=== PATIENT | female | born 1995 | race Caucasian/White ===

== ENCOUNTER 2016-12-23 15:05 | Emergency (ER) | payer OTHER ==
[~2016-12-23] VITALS: Ht 160 cm; Wt 70.3 kg
[~2016-12-23 15:05] MED LIST: PREN1CAP7 PO; PRENTAB PO; RANI150T PO; ZANT150T2 PO
--- NOTE | 2016-12-23 16:00 | PD ---
HPI Chief Complaint Contractions Date Seen: Dec 23, 2016 Time Seen: 15:42 Travel History International Travel<30 Days: No Contact w/Intl Traveler<30Days: No Known Affected Area: No History of Present Illness HPI 21-year-old 1 para 0 at 38+ weeks who has been having contractions for the last hour. She denies any bleeding or leakage of fluid. She reports good movement History Past Medical History Narrative Medical GERD Past Surgical History Surgical History: No Previous Surgery Family History Family History: Negative Social History Alcohol Use: No Tobacco Use: No Substance Abuse: No Allergies-Medications (Allergen,Severity, Reaction): Coded Allergies: No Known Allergies (Unverified , 12/20/16) Home Meds Active Scripts Ranitidine (Zantac) 150 Mg Tab, 150 MG PO BID for Reduce Stomach Acid, #60 TAB 0 Refills Prov:Julieta Abreu 11/08/16 Vit W/ Iron Carbonyl- (Prenatabs Rx 29-1 mg) 1 Tab Tab, 1 TAB PO DAILY , #30 BOTTLE 11 Refills Prov:Julieta Abreu 11/06/16 Discontinued Scripts Ranitidine (Ranitidine) 150 Mg Tab, 150 MG PO BID for Heartburn Management, #60 TAB 6 Refills Prov:Julieta Abreu 11/08/16 W/O Vit A W/ Fe Fumar (Citranatal [place]) 27-1-260 Mg Cap, 1 CAP PO DAILY for Nutritional Supplement, #60 CAP 3 Refills Prov:Patrica Garcia CNM [facility] 06/26/16 Review of Systems Except as stated in HPI: all other systems reviewed are Neg Physical Exam Narrative GENERAL: Well-nourished, well-developed patient. SKIN: Warm and dry. HEAD: Normocephalic and atraumatic. EYES: No scleral icterus. No injection or drainage. ENT: No nasal drainage noted. Mucous membranes pink. Airway patent. NECK: Supple, trachea midline. No JVD. CARDIOVASCULAR: Regular rate and rhythm without murmurs, gallops, or rubs. RESPIRATORY: Breath sounds equal bilaterally. No accessory muscle use. ABDOMEN/GI: Abdomen soft, non-tender, bowel sounds present, no rebound, no guarding Gravid to [-] weeks size Fundal Height: [-] GENITOURINARY: External Genitalia: intact and normal in appearance BUS glands: [-] Cervix: [-] Dilatation: [Closed-] Effacement: [-60] Station: [-3-] Presentation: [-] Membranes: [intact ] Uterine Contractions: [Mild irregular-] FHT's: Category: [-1] Baseline: [-] Reactive: [Yes-] Variability: [-] Decels: [-] EXTREMITIES: No cyanosis or edema. BACK: Nontender without obvious deformity. No CVA tenderness. NEUROLOGICAL: Awake and alert. Motor and sensory grossly within normal limits. Five out of 5 muscle strength in all muscle groups. Normal speech. Data Data Vital Signs Reviewed: Yes Group B Strep: Negative MDM Medical Record Reviewed: Yes Narrative Course / MDM Assessment: Primigravida with mild uterine contractions without labor. Plan: Labor precautions were reviewed. She will return to ED or follow-up for routine care visit Sunday. Diagnosis Diagnosis: Primary Impression: 38 weeks gestation of Additional Impression: Irregular uterine contractions Disposition: DISCHARGE HOME Flex Murillo MD Dec 23, 2016 16:00
== END 2016-12-23 16:08 | disposition home or self-care (01) ==
LOC: HOBED 15:05
DX: O47.1 False labor at or after 37 completed weeks of gestation (principal); K21.9 Gastro-esophageal reflux disease without esophagitis; Z3A.38 38 weeks gestation of pregnancy
CPT/HCPCS: 99283

== ENCOUNTER 2017-01-06 19:42 | Inpatient (IN) | payer OTHER ==
[~2017-01-06] VITALS: Ht 160 cm; Wt 70.8 kg
[~2017-01-06 19:42] MED LIST changes: -PREN1CAP7 PO; -RANI150T PO
--- NOTE | 2017-01-06 19:58 | HHI.HP ---
HPI Chief Complaint 40 weeks and 6 days . Elective admission for IOL. Travel History International Travel<30 Days: No Contact w/Intl Traveler<30Days: No Known Affected Area: No History of Present Illness HPI Pt is a 21 yo G p at 40 weeks and 6 days. presents for IOL post-term. care at [facility], [facility] 12-31-2016. Reports active movements. No vaginal bleeding or leaking. GBS negative. Weeks Gestation: 41 Para: 0 : 1 History Past Medical History Narrative Medical GERD Obstetric History Obstetric History PRIMIGRAVIDA Past Surgical History Surgical History: No Previous Surgery Family History Family History: Negative Social History Alcohol Use: No Tobacco Use: No Substance Abuse: No Allergies-Medications (Allergen,Severity, Reaction): Coded Allergies: No Known Allergies (Unverified , 01/02/17) Home Meds Active Scripts Ranitidine (Zantac) 150 Mg Tab, 150 MG PO BID for Reduce Stomach Acid, #60 TAB 0 Refills Prov:Julieta Abreu 11/08/16 Vit W/ Iron Carbonyl- (Prenatabs Rx 29-1 mg) 1 Tab Tab, 1 TAB PO DAILY , #30 BOTTLE 11 Refills Prov:Julieta Abreu 11/06/16 Review of Systems Except as stated in HPI: all other systems reviewed are Neg Physical Exam Narrative GENERAL: Well-nourished, well-developed patient. SKIN: Warm and dry. HEAD: Normocephalic and atraumatic. EYES: No scleral icterus. No injection or drainage. ENT: No nasal drainage noted. Mucous membranes pink. Airway patent. NECK: Supple, trachea midline. No JVD. CARDIOVASCULAR: Regular rate and rhythm without murmurs, gallops, or rubs. RESPIRATORY: Breath sounds equal bilaterally. No accessory muscle use. BREASTS: Bilateral exam showed no masses , no retractions, no nipple discharge. ABDOMEN/GI: Abdomen soft, non-tender, bowel sounds present, no rebound, no guarding Gravid to [40] weeks size GENITOURINARY: External Genitalia: intact and normal in appearance Cervix: [soft] Dilatation: [FT] Effacement: [50%] Station: [-3] Presentation: [-] Membranes: [intact] Uterine Contractions: [rare] FHT's: Category: [] Baseline: [-] Reactive: [-] Variability: [-] Decels: [none] EXTREMITIES: No cyanosis or edema. BACK: Nontender without obvious deformity. No CVA tenderness. NEUROLOGICAL: Awake and alert. Motor and sensory grossly within normal limits. Five out of 5 muscle strength in all muscle groups. Normal speech. Caprini VTE Risk Assessment Caprini VTE Risk Assessment: No/Low Risk (score <= 1) Caprini Risk Assessment Model Point Value = 1 Point Value = 2 Point Value = 3 Point Value = 5 Age 41-60 Minor surgery BMI > 25 kg/m2 Swollen legs Varicose veins or History of unexplained or recurrent spontaneous Oral contraceptives or hormone replacement Sepsis (< 1 month) Serious lung disease, including pneumonia (< 1 month) Abnormal pulmonary function Acute myocardial infarction Congestive heart failure (< 1 month) History of inflammatory bowel disease Medical patient at bed rest Age 61-74 Arthroscopic surgery Major open surgery (> 45 min) Laparoscopic surgery (> 45 min) Malignancy Confined to bed (> 72 hours) Immobilizing plaster cast Central venous access Age >= 75 History of VTE Family history of VTE Factor V Leiden Prothrombin [id number] Lupus anticoagulant Anticardiolipin antibodies Elevated serum homocysteine Heparin-induced thrombocytopenia Other congenital or acquired thrombophilia Stroke (< 1 month) Elective arthroplasty Hip, pelvis, or leg fracture Acute spinal cord injury (< 1 month) Prophylaxis Regimen Total Risk Factor Score Risk Level Prophylaxis Regimen 0-1 Low Early ambulation 2 Moderate Order ONE of the following: *Sequential Compression Device (SCD) *Heparin 5000 units SQ BID 3-4 Higher Order ONE of the following medications: *Heparin 5000 units SQ TID *Enoxaparin/Lovenox 40 mg SQ daily (WT < 150 kg, CrCl > 30 mL/min) *Enoxaparin/Lovenox 30 mg SQ daily (WT < 150 kg, CrCl > 10-29 mL/min) *Enoxaparin/Lovenox 30 mg SQ BID (WT < 150 kg, CrCl > 30 mL/min) AND/OR *Sequential Compression Device (SCD) 5 or more Highest Order ONE of the following medications: *Heparin 5000 units SQ TID (Preferred with Epidurals) *Enoxaparin/Lovenox 40 mg SQ daily (WT < 150 kg, CrCl > 30 mL/min) *Enoxaparin/Lovenox 30 mg SQ daily (WT < 150 kg, CrCl > 10-29 mL/min) *Enoxaparin/Lovenox 30 mg SQ BID (WT < 150 kg, CrCl > 30 mL/min) AND *Sequential Compression Device (SCD) Data Data Vital Signs Reviewed: Yes Group B Strep: Negative Assessment/Plan Assessment and Plan 21 yo at 40 weeks and 6 days. Admission for post-term IOL. Plan for Cervidil 10mg posterior fornix, Blane Conde MD Jan 06, 2017 19:58
[2017-01-06] MEDS: LACTATED RINGER'S 1000 ML INJ 1,000 ML IV SCH (21:24)
[2017-01-06] MEDS ORDERED: LACTATED RINGER'S 1000 ML INJ 1,000 ML IV PRN (21:24)
[2017-01-06] MEDS ORDERED: CITRIC ACID-SODIUM CITRATE LIQ 30 ML UDC PO SCH (21:30)
[2017-01-06] MEDS ORDERED: LIDOCAINE HCL 1% 50 ML VIAL I-DERMAL PRN (21:30)
[2017-01-06] MEDS ORDERED: MINERAL OIL 10 ML VIAL TOPICAL PRN (21:30)
[2017-01-06] MEDS ORDERED: LIDOCAINE HCL 1% 50 ML VIAL INFIL PRN (21:30)
[2017-01-06] MEDS ORDERED: ONDANSETRON HCL 4 MG/2 ML VIAL IV PUSH PRN (21:30)
[2017-01-06] MEDS ORDERED: OXYTOCIN 30 UNITS-500ML PREMIX 500 ML IV ONE (21:30)
[2017-01-06] MEDS ORDERED: SODIUM CHLORID 0.9% 500 ML INJ 500 ML IV PRN (21:30)
[2017-01-06] MEDS ORDERED: SODIUM CHLOR 0.9% 1000 ML INJ 1,000 ML IV PRN (21:44)
[2017-01-06 22:00] VITALS: BP 125/82; PULSE 78; RESP 18
[2017-01-06] MEDS: DINOPROSTONE 10 MG VAG INSERT VAGINAL ONE (22:00)
[2017-01-06 22:15] LABS: AUTOMATED NEUTROPHIL # 7.8 TH/MM3 (1.8-7.7); BASOPHIL # 0.1 TH/MM3 (0-0.2); BASOPHIL % 0.6 % (0.0-2.0); EOSINOPHIL # 0.1 TH/MM3 (0-0.4); EOSINOPHIL % 0.9 % (0.0-4.0); HEMO FLAGS DIFF FINAL; LYMPH % 21.9 % (9.0-44.0); LYMPHOCYTE # 2.4 TH/MM3 (1.0-4.8); MEAN CELL VOLUME 86.6 FL (80.0-100.0); MEAN CORPUSCULAR HEMOGLOBIN 29.1 PG (27.0-34.0); MEAN CORPUSCULAR HGB CONC 33.6 % (32.0-36.0); MONO % 6.6 % (0.0-8.0); PLATELET COUNT 180 TH/MM3 (150-450); RED BLOOD COUNT 4.27 MIL/MM3 (4.00-5.30); RED CELL DISTRIBUTION WIDTH 13.9 % (11.6-17.2); WHITE BLOOD COUNT 11.1 TH/MM3 (4.0-11.0)
[2017-01-06 22:19] LABS: BACTERIA, URINE RARE /hpf; BLOOD, URINE NEG (NEG); COMMENT (UR) CULT NOT INDICATED; CULTURE IF INDICATED CULT NOT INDICATED; GLUCOSE,URINE 70 mg/dL (NEG); KETONE, URINE NEG (NEG); MUCUS URINE FEW /lpf (OCC); NITRITE,URINE NEG (NEG); PH, URINE 6.5 (5.0-8.5); SQUAMOUS EPITHELIAL CELL URINE 1 /hpf (0-5); URINE COLOR YELLOW (YELLW/STRAW)
[2017-01-06] MEDS: DINOPROSTONE 10 MG VAG INSERT VAGINAL SCH ×2 (23:13→23:17)
[2017-01-07] VITALS (15 sets, daily range): BP systolic 93–117; BP diastolic 56–79; PULSE 18–92; RESP 7–18; TEMP 98.1–99
[2017-01-07] MEDS: LACTATED RINGER'S 1000 ML INJ 1,000 ML IV SCH ×3 (05:24→21:24)
--- NOTE | 2017-01-07 08:04 | PD.LABORPN ---
Subjective Subjective Patient seen and examined this morning by OB team. Her only complaint this morning is heartburn related to acid reflux. Patient endorses good movement with no loss of fluid, bleeding, or discharge overnight. Denies any fevers, chills, SOB, chest pain, or calf tenderness. Objective Vital Signs Vital Signs Date Time Temp Pulse Resp B/P (MAP) Pulse Ox O2 Delivery O2 Flow Rate FiO2 01/07/17 07:21 78 18 108/67 (81) 01/07/17 04:58 17 01/07/17 04:57 87 93/56 (68) 01/07/17 04:56 98.1 01/07/17 03:00 71 18 01/07/17 02:00 18 01/07/17 00:00 60 7 110/58 (75) Objective Pelvic Exam: on 02/06/17 at 2000 Cervix: Posterior Dilatation: 0-1cm Effacement: Soft Station: Soft Presentation: Vertex Membranes: Intact Uterine Contractions: None FHT's: Category: 1 Baseline: 120s Reactive: Positive Variability: Moderate Decels: None Weeks Gestation: 41 Gest Age Assessed Date: Jan 06, 2017 Gest Age Assessed Time: 20:00 Pt started active labor?: No Medical induction of labor?: Yes Medical induction start date: Jan 06, 2017 Medical induction start time: 23:00 Artificial rupture of membrane: No Assessment/Plan Problem List: (1) 41 weeks gestation of ICD Codes: Z3A.41 - 41 weeks gestation of Status: Acute Assessment and Plan Mrs. Vance is 21 y/o at 41/0 weeks gestation admitted for induction of labor. 1. IUP at 41 weeks gestation -Continue routine OB care -Encourage PO hydration -FHT category 1, reassuring physical exam 2. Induction of labor -Cervidil placed on 01/06/17 at 2300 -Plan to re-evaluate patient on 01/07/17 at 1100 for progression -Anticipate , will augment labor with Pitocin as needed/tolerated 3. Acid Reflux -Ranitidine 150mg BID SDW: Efrain España MD R2 Jan 07, 2017 08:04
[2017-01-07] MEDS: FAMOTIDINE 20 MG TAB PO SCH ×2 (08:51→20:26)
[2017-01-07] MEDS ORDERED: MISOPROSTOL 100 MCG TAB ONE (10:50)
[2017-01-07] MEDS ORDERED: MISOPROSTOL 100 MCG TAB VAGINAL ONE ×3 (11:45→20:30)
--- NOTE | 2017-01-07 20:24 | PD.LABORPN ---
Subjective Subjective s/p cervidil followed by two cytotec. Now with moderate cramping. Objective Vital Signs Vital Signs Date Time Temp Pulse Resp B/P (MAP) Pulse Ox O2 Delivery O2 Flow Rate FiO2 01/07/17 19:01 98.2 16 01/07/17 15:30 98.2 8 01/07/17 15:30 18 01/07/17 13:30 18 Objective Pelvic Exam: Cervix: [-mid] Dilatation: [1-2-] Effacement: [50] Station: [-2-] Presentation: [vtx-] Membranes: [intact] Uterine Contractions: [[id number]] FHT's: Category: [1-] Baseline: [-140] Reactive: [mod-] Variability: [-mod] Decels: [-absent] Weeks Gestation: 41 Gest Age Assessed Date: Jan 06, 2017 Gest Age Assessed Time: 20:00 Pt started active labor?: No Medical induction of labor?: Yes Medical induction start date: Jan 06, 2017 Medical induction start time: 23:00 Artificial rupture of membrane: No Assessment/Plan Problem List: (1) 41 weeks gestation of ICD Codes: Z3A.41 - 41 weeks gestation of Status: Acute Plan: Cytotec 50mcg placed intravaginally Category 1 FHR tracing Kalpana Peralta MD Jan 07, 2017 20:24
[2017-01-07] MEDS ORDERED: ZOLPIDEM TARTRATE 10 MG TAB PO PRN (23:30)
[2017-01-07] MEDS ORDERED: OXYTOCIN 30 UNITS-500ML PREMIX 500 ML IV SCH (23:30)
[2017-01-08] VITALS (127 sets, daily range): BP systolic 68–138; BP diastolic 37–95; PULSE 66–201; RESP 16–20; TEMP 97.8–101.6; O2SAT 98–100
[2017-01-08] MEDS: LACTATED RINGER'S 1000 ML INJ 1,000 ML IV SCH ×3 (05:24→13:24)
[2017-01-08] MEDS ORDERED: fentaNYL 2MCG-BUPIV 0.125% INJ 100 ML ONE (06:06)
[2017-01-08] MEDS ORDERED: ePHEDrine/NS 25 MG/5 ML SYR ONE (06:06)
[2017-01-08] MEDS ORDERED: ePHEDrine/NS 25 MG/5 ML SYR IV PUSH PRN (07:15)
[2017-01-08] MEDS ORDERED: NO SYSTEM NARCOTICS PRN (07:15)
[2017-01-08] MEDS ORDERED: DO NOT ADMINISTER ANTICOAGULANTS PRN (07:15)
[2017-01-08] MEDS ORDERED: EPIDURAL-DO NOT ADMINISTER ANTICOAGULANTS PRN (07:30)
[2017-01-08] MEDS ORDERED: EPIDURAL-DIPHENHYDRAMINE HCL 50 MG/ML VIAL IV PUSH PRN (07:30)
[2017-01-08] MEDS ORDERED: EPIDURAL-NALOXONE HCL 0.4 MG/ML AMP IV PUSH PRN (07:30)
[2017-01-08] MEDS ORDERED: EPIDURAL-DIPHENHYDRAMINE HCL 50 MG CAP PO PRN (07:30)
[2017-01-08] MEDS ORDERED: EPIDURAL-NO SYSTEMIC NARCOTICS PRN (07:30)
[2017-01-08] MEDS: FAMOTIDINE 20 MG TAB PO SCH (09:00)
[2017-01-08] MEDS: fentaNYL 2MCG-BUPIV 0.125% 100 ML EPIDURAL SCH ×2 (10:28→13:32)
[2017-01-08] MEDS ORDERED: MORPHINE SULFATE PF 5 MG/10 ML VIAL ONE (12:00)
[2017-01-08] MEDS ORDERED: ONDANSETRON HCL 4 MG/2 ML VIAL IV PUSH ONE (12:00)
[2017-01-08] MEDS ORDERED: LIDOCAINE HCL 1% PF 5 ML AMPULE OTHER ONE (12:00)
[2017-01-08] MEDS ORDERED: LACTATED RINGER'S 1000 ML INJ 1,000 ML IV ONE (12:00)
[2017-01-08] MEDS ORDERED: OXYTOCIN 10 UNIT/ML AMP IV ONE (12:00)
[2017-01-08] MEDS ORDERED: FAMOTIDINE 20 MG TAB PO ONE (14:00)
[2017-01-08] MEDS ORDERED: LIDOCAINE HCL 1.5% PF SOLN 20 ML AMP ONE ×2 (15:20→17:53)
[2017-01-08] MEDS: AMPICILLIN INJ 2,000 MG in SODIUM CHLORIDE 0.9% INJ 100 ML IV SCH (18:30)
[2017-01-08] MEDS ORDERED: GENTAMICIN INJ 80 MG in SODIUM CHLORIDE 0.9% INJ 100 ML IV SCH (18:30)
[2017-01-08] MEDS: GENTAMICIN/SOD CHL 80 MG/100 ML IV SCH (18:36)
[2017-01-08] MEDS ORDERED: ACETAMINOPHEN 1000 MG/100 ML 100 ML IV ONE (22:24)
[2017-01-08 23:42] LABS: BLOOD GAS BASE EXCESS -4.8 mmol/L (-2-2); BLOOD GAS O2 HGB SATURATION 7 % (90-100); CORD BLOOD GAS HCO3 21 mmol/L (21-29); CORD BLOOD GAS PCO2 46 mmHG (34-78); CORD BLOOD GAS PH 7.28 (7.14-7.42); CORD BLOOD GAS PO2 9 mmHG (3.0-40.0)
[2017-01-08 23:43] LABS: DRAW SITE CORD BLOOD; STAT NO
[2017-01-08] MEDS ORDERED: ACETAMINOPHEN 325 MG TAB PO PRN (23:45)
[2017-01-08] MEDS ORDERED: ZOLPIDEM TARTRATE 5 MG TAB PO PRN (23:45)
[2017-01-08] MEDS ORDERED: ONDANSETRON HCL 4 MG/2 ML VIAL IV PUSH PRN (23:45)
[2017-01-08] MEDS ORDERED: KETOROLAC TROMETHAMINE 60 MG/2 ML (IM) VIAL IM PRN ×2 (23:45)
[2017-01-08] MEDS ORDERED: OXYTOCIN 30 UNITS-500ML PREMIX 500 ML IV ONE ×2 (23:45)
[2017-01-08] MEDS ORDERED: SODIUM CHLORIDE 0.9% FLUSH 10 ML FLUSH IV FLUSH PRN (23:45)
[2017-01-08] MEDS ORDERED: SIMETHICONE 80 MG CHEWABLE TAB PO PRN (23:45)
[2017-01-09] VITALS (8 sets, daily range): BP systolic 101–135; BP diastolic 73–89; PULSE 78–108; RESP 16–20; TEMP 97.6–98.7; O2SAT 98–99
[2017-01-09] MEDS ORDERED: KETOROLAC TROMETHAMINE 60 MG/2 ML (IM) VIAL IM ONE (00:47)
[2017-01-09] MEDS: AMPICILLIN INJ 2,000 MG in SODIUM CHLORIDE 0.9% INJ 100 ML IV SCH ×2 (01:58→06:30)
[2017-01-09] MEDS: GENTAMICIN/SOD CHL 80 MG/100 ML IV SCH (02:52)
[2017-01-09] MEDS ORDERED: LACTATED RINGER'S 1000 ML INJ 1,000 ML IV SCH (04:36)
[2017-01-09 05:58] LABS: AUTOMATED NEUTROPHIL # 12.6 TH/MM3 (1.8-7.7); BASOPHIL # 0.1 TH/MM3 (0-0.2); BASOPHIL % 0.3 % (0.0-2.0); EOSINOPHIL % 0.1 % (0.0-4.0); HEMATOCRIT 27.5 % (35.0-46.0); HEMO FLAGS DIFF FINAL; LYMPH % 8.9 % (9.0-44.0); LYMPHOCYTE # 1.3 TH/MM3 (1.0-4.8); MEAN CELL VOLUME 85.6 FL (80.0-100.0); MEAN CORPUSCULAR HEMOGLOBIN 29.9 PG (27.0-34.0); MEAN CORPUSCULAR HGB CONC 34.9 % (32.0-36.0); MONO % 5.7 % (0.0-8.0); PLATELET COUNT 120 TH/MM3 (150-450); RED BLOOD COUNT 3.21 MIL/MM3 (4.00-5.30); RED CELL DISTRIBUTION WIDTH 13.6 % (11.6-17.2); WHITE BLOOD COUNT 14.9 TH/MM3 (4.0-11.0)
[2017-01-09] MEDS: DOCUSATE SODIUM 50 MG/SENNA 8.6 MG TAB PO SCH ×3 (06:30→20:36)
--- NOTE | 2017-01-09 08:46 | HHI.OB ---
Subjective Remarks 21 year old female s/p C/S at 40 wks gestation, POD 1. AFVSS. Patient reports she is feeling well. Bleeding is decreasing and pain is well- controlled. She is breast feeding and bonding well with baby. Ambulating without difficulties. She is tolerating a diet without nausea or vomiting. She has not had a bowel movement. She has passed gas. Denies chest pain, dysuria, shortness of breath, or calf pain. Objective Vitals/I&O Vital Signs Date Time Temp Pulse Resp B/P (MAP) Pulse Ox O2 Delivery O2 Flow Rate FiO2 01/09/17 05:40 98.0 78 16 101/76 (84) 01/09/17 01:15 98.3 80 16 109/81 (90) 01/09/17 00:35 99 01/09/17 00:31 94 18 124/75 (91) 01/09/17 00:05 98 01/08/17 23:50 98 01/08/17 23:47 112/63 (79) 01/08/17 23:45 119 01/08/17 23:44 98.2 18 01/08/17 22:00 18 01/08/17 21:45 18 01/08/17 21:30 18 01/08/17 20:45 18 01/08/17 20:30 98.4 01/08/17 20:15 18 01/08/17 20:00 18 01/08/17 19:30 18 01/08/17 19:19 88 138/87 (104) 01/08/17 18:09 18 01/08/17 18:00 101.6 01/08/17 17:00 126 116/77 (90) 01/08/17 16:45 18 01/08/17 16:30 154 101/68 (79) 01/08/17 16:09 88/44 (59) 01/08/17 16:00 68/37 (47) 01/08/17 15:30 123 110/70 (83) 01/08/17 15:27 109 120/88 (99) 01/08/17 15:25 116 01/08/17 15:23 117 110/87 (95) 01/08/17 15:21 99.7 01/08/17 15:20 128 10/16/17 15:15 136 01/08/17 15:10 18 01/08/17 15:05 139 01/08/17 15:04 201 102/61 (75) 01/08/17 15:01 196 78/47 (57) 01/08/17 14:59 97.8 01/08/17 14:40 111 01/08/17 14:35 78 01/08/17 14:30 74 01/08/17 14:30 72 119/81 (94) 01/08/17 14:00 71 01/08/17 13:55 72 01/08/17 13:50 72 01/08/17 13:45 76 01/08/17 13:40 75 01/08/17 13:37 17 01/08/17 13:35 71 01/08/17 13:30 68 01/08/17 13:30 75 123/81 (95) 01/08/17 13:10 96 01/08/17 13:06 20 01/08/17 13:05 98.5 88 01/08/17 13:00 70 115/72 (86) 01/08/17 13:00 69 01/08/17 12:40 66 01/08/17 12:31 68 121/67 (85) 01/08/17 12:30 121/67 (85) 01/08/17 12:30 98.7 73 18 01/08/17 12:25 82 01/08/17 12:20 88 01/08/17 12:15 91 01/08/17 12:10 81 01/08/17 12:05 84 01/08/17 12:02 85 125/82 (96) 01/08/17 12:01 100.0 01/08/17 12:00 96 01/08/17 11:45 18 01/08/17 11:40 73 01/08/17 11:35 69 01/08/17 11:30 70 01/08/17 11:30 68 97/54 (68) 01/08/17 11:13 87 93/58 (70) 01/08/17 11:10 78 01/08/17 11:05 74 01/08/17 11:00 73 01/08/17 11:00 73 91/55 (67) 01/08/17 10:51 17 01/08/17 10:50 79 01/08/17 10:45 83 01/08/17 10:45 17 01/08/17 10:40 90 01/08/17 10:35 90 01/08/17 10:30 91 103/69 (80) 01/08/17 10:25 89 01/08/17 10:15 89 01/08/17 10:15 98.2 17 01/08/17 10:05 107 01/08/17 10:00 113 115/73 (87) 01/08/17 09:55 108 01/08/17 09:50 107 01/08/17 09:45 108 01/08/17 09:42 20 01/08/17 09:40 109 01/08/17 09:35 109 01/08/17 09:30 109 106/65 (79) 01/08/17 09:30 107 01/08/17 09:25 107 01/08/17 09:20 109 01/08/17 09:15 109 01/08/17 09:10 113 01/08/17 09:00 98 01/08/17 09:00 113/73 (86) 01/08/17 08:40 109 Result Diagram: 01/09/17 0518 Objective Remarks GENERAL: Well-nourished, well-developed patient. CARDIOVASCULAR: Regular rate and rhythm without murmurs, gallops, or rubs. RESPIRATORY: Breath sounds equal bilaterally. No accessory muscle use. ABDOMEN/GI: Abdomen soft, non-tender, bowel sounds present. Incision: Covered in pressure dressing, no active bleeding; will examine POD 2 Fundus: Firm, non-tender at umbilicus. GENITOURINARY: Light to moderate bleeding. EXTREMITIES: No cyanosis or edema, non-tender, without signs of DVT. Medications and IVs Current Medications Medications (Trade) Dose Ordered Sig/Nat Route Start Time Stop Time Status Last Admin (Xylocaine 1% Inj (50 ml)) 0.1 ml UNSCH X1 PRN I-DERMAL 01/06/17 21:30 01/09/17 21:29 (Bicitra Liq) 30 ml PROTECTIVE SIGNAL OPERATOR PO 01/06/17 21:30 01/10/17 21:29 (Zofran Inj) 4 mg Q6H PRN IV PUSH 01/06/17 21:30 Ampicillin Sodium 2000 mg/Sodium Chloride 100 ml @ 400 mls/hr Q6H IV 01/08/17 19:00 01/09/17 06:30 Gentamicin Sulfate/Sodium Chloride 100 ml @ 200 mls/hr Q8H IV 01/08/17 19:00 01/09/17 02:52 Lactated Ringer's 1,000 ml @ 100 mls/hr Q10H IV 01/09/17 04:36 01/10/17 00:35 01/09/17 01:58 Oxytocin 500 ml @ 100 mls/hr UNSCH X1 PRN IV 01/09/17 09:45 01/10/17 09:44 (NS Flush) 2 ml BID IV FLUSH 01/09/17 09:00 (NS Flush) 2 ml UNSCH PRN IV FLUSH 01/08/17 23:45 (Mylicon Chew) 80 mg QID PRN PO 01/08/17 23:45 (Tylenol) 650 mg Q6H PRN PO 01/08/17 23:45 (Motrin) 600 mg Q6H PRN PO 01/08/17 23:45 (Toradol Inj) 60 mg UNSCH X1 PRN IM 01/08/17 23:45 01/09/17 23:44 01/09/17 00:50 (Toradol Inj) 30 mg Q6H PRN IM 01/08/17 23:45 01/09/17 23:44 01/09/17 06:30 (Percocet 5-325 Mg) 1 tab Q4H PRN PO 01/08/17 23:45 (Percocet 5-325 Mg) 2 tab Q4H PRN PO 01/08/17 23:45 (Yuni-Colace) 2 tab Q12HR PO 01/08/17 23:45 01/09/17 06:30 (Ambien) 5 mg HS PRN PO 01/08/17 23:45 (M-M-R Ii Inj) 0.5 ml ONCE ONCE SQ 01/09/17 16:00 01/09/17 16:01 (Boostrix Inj) 0.5 ml ONCE ONCE IM 01/09/17 16:00 01/09/17 16:01 (Zofran Inj) 4 mg Q6H PRN IV PUSH 01/08/17 23:45 Assessment/Plan Problem List: (1) 41 weeks gestation of ICD Codes: Z3A.41 - 41 weeks gestation of Status: Resolved Plan: Cytotec 50mcg placed intravaginally Category 1 FHR tracing Assessment and Plan 21 yo female s/p C/S, POD 1 - AFVSS - Continue routine care - Motrin and Percocet PRN pain - Encourage OOB - Pelvic rest x 6 wks. Will need 1 week incision check. - Contraception: OCPs; will place Rx on discharge - Anticipate D/C 01/10 or 01/11 Jovani Shields MD R2 Jan 09, 2017 08:46
--- NOTE | 2017-01-09 09:02 | MP ---
cc: BRENNAN GUARDADO MD DATE OF SURGERY 01/08/2017 PREOPERATIVE DIAGNOSIS Failure to progress, failed induction at 41 weeks. POSTOPERATIVE DIAGNOSIS Failure to progress, failed induction at 41 weeks with addition of chorioamnionitis. PROCEDURE PERFORMED Primary low transverse section SURGEON Brennan Guardado MD SUPERVISOR [employer] [facility] ANESTHESIA Epidural PREOP NOTE The patient is a 21 year-old white female G1, P0 at 41-weeks gestation who was admitted for induction of labor for post-dates. She had Cervidil and Cytotec with pitocin augmentation, artificial rupture of membranes. She progressed to the second stage and pushed for two hours, but was unable to bring the head to the pelvic floor. Positive caput and molding noted. In spite of Pitocin and contractions that were adequate, unfortunately, she did not make progress in the second stage. She was diagnosed with a failure to progress and taken to surgery for transient abdominal delivery. PROCEDURE The patient was taken to the operating room, placed in the supine position on the operating room table. After adequate epidural anesthesia was administered, she was prepped and draped for abdominal surgery. A Pfannenstiel incision was made in the lower abdomen and carried through the fascia sharply. The fascia was dissected off the rectus muscle and the rectus split in the midline. The incision extended superiorly and inferiorly and stretched open. A bladder blade was placed at the lower edge of the incision. The visceral peritoneum reflected off the lower uterine segment and placed on the bladder blade. A transverse hysterotomy was made and extended bluntly bilaterally. Clear fluid noted at that time. A female infant was delivered at 10:52 p.m. weight 3620 grams, that is 8 pounds even and 's 8 and 9. Cord blood obtained. Cord pH obtained, that is pending at the time of dictation. The placenta was manually extracted. Placenta cultured for aerobic and anaerobic organism, as well as endometrial cultures as well. The uterus was exteriorized. The hysterotomy closed with a running layer of 0 chromic followed by imbricating sutures of same. Hemostasis was achieved. The bladder reapproximated with a running layer of 3-0 Vicryl. The uterus elevated. Blood suctioned from the cul-de-sac gutters and the pelvis irrigated. The uterus was then replaced in the peritoneal cavity. The ovaries and tubes were normal on both sides. The parietoperitoneum was closed with a running layer of 2-0 Vicryl. The muscles was reapproximated with stick ties of chromic. The fascia closed with a running layer of 0 Vicryl. The subcutaneous tissues were reapproximated with 3-0 plain gut suture. The skin was closed with a subcuticular stitch of 3-0 Monocryl. Steri-Strips and a pressure dressing applied. ESTIMATED BLOOD LOSS 100 cc COMPLICATIONS There were no complications. Sponge, needle and instrument counts were correct x 2 and the patient was taken to Recovery in stable condition. MD CINTHIA Madrigal/GHULAM /11:43 PM /8:52 AM
[2017-01-09] MEDS ORDERED: OXYTOCIN 30 UNITS-500ML PREMIX 500 ML IV PRN (09:45)
[2017-01-09] MEDS: oxyCODONE/ACETAMINOPHEN 5 MG/325 MG TAB PO PRN ×3 (10:00→20:37)
[2017-01-09] MEDS: IBUPROFEN 600 MG TAB PO PRN ×2 (14:39→20:36)
[2017-01-09] MEDS ORDERED: MEASLES, MUMPS, RUBELLA VACCINE 0.5 ML VIAL SQ ONE (16:00)
[2017-01-09] MEDS ORDERED: DIPHTH/TETANUS/ACEL PERTUSSIS (BOOSTER) 0.5 ML VIAL/PFS IM ONE (16:00)
[2017-01-10] MEDS: oxyCODONE/ACETAMINOPHEN 5 MG/325 MG TAB PO PRN ×6 (00:51→22:39)
[2017-01-10 01:00] VITALS: TEMP 98.1
[2017-01-10] MEDS: IBUPROFEN 600 MG TAB PO PRN ×3 (05:09→20:22)
--- NOTE | 2017-01-10 07:06 | HHI.OB ---
Subjective Remarks 21 year old female s/p C/S at 40 wks gestation, POD 2. AFVSS. Patient reports she is feeling well. Bleeding is decreasing. She reports pain is well- controlled with Percocet. She is breast feeding and bonding well with baby. Ambulating without difficulties. She is tolerating a diet without nausea or vomiting. She has not had a bowel movement. She has passed gas. Denies chest pain, dysuria, shortness of breath, or calf pain. (Marisol Brush MD R1) Objective Vitals/I&O Vital Signs Date Time Temp Pulse Resp B/P (MAP) Pulse Ox O2 Delivery O2 Flow Rate FiO2 01/10/17 01:00 98.1 01/09/17 20:00 98.2 90 18 116/73 (87) 01/09/17 15:20 108 20 135/89 (104) 01/09/17 15:20 97.6 01/09/17 08:00 98.7 01/09/17 08:00 87 18 111/73 (86) 98 Objective Remarks GENERAL: Well-nourished, well-developed patient. CARDIOVASCULAR: Regular rate and rhythm without murmurs, gallops, or rubs. RESPIRATORY: Breath sounds equal bilaterally. No accessory muscle use. ABDOMEN/GI: Abdomen soft, non-tender. Incision clean and dry. Fundus: Firm, non-tender at umbilicus. GENITOURINARY: Light to moderate bleeding. EXTREMITIES: No cyanosis or edema, non-tender, without signs of DVT. Medications and IVs Current Medications Medications (Trade) Dose Ordered Sig/Nat Route Start Time Stop Time Status Last Admin (Bicitra Liq) 30 ml REMOTE SENSING TECHNOLOGIST PO 01/06/17 21:30 01/10/17 21:29 (Zofran Inj) 4 mg Q6H PRN IV PUSH 01/06/17 21:30 Oxytocin 500 ml @ 100 mls/hr UNSCH X1 PRN IV 01/09/17 09:45 01/10/17 09:44 (NS Flush) 2 ml BID IV FLUSH 01/09/17 09:00 (NS Flush) 2 ml UNSCH PRN IV FLUSH 01/08/17 23:45 (Mylicon Chew) 80 mg QID PRN PO 01/08/17 23:45 01/10/17 01:10 (Tylenol) 650 mg Q6H PRN PO 01/08/17 23:45 (Motrin) 600 mg Q6H PRN PO 01/08/17 23:45 01/10/17 05:09 (Percocet 5-325 Mg) 1 tab Q4H PRN PO 01/08/17 23:45 (Percocet 5-325 Mg) 2 tab Q4H PRN PO 01/08/17 23:45 01/10/17 05:12 (Yuni-Colace) 2 tab Q12HR PO 01/08/17 23:45 01/09/17 20:36 (Ambien) 5 mg HS PRN PO 01/08/17 23:45 (Zofran Inj) 4 mg Q6H PRN IV PUSH 01/08/17 23:45 (Marisol Brush MD R1) Assessment/Plan Assessment and Plan 21 yo female s/p C/S, POD 2 - AFVSS - Continue routine care - Motrin and Percocet PRN pain - Encourage OOB - Pelvic rest x 6 wks. Will need 1 week incision check. - Contraception: OCPs; will place Rx on discharge - Anticipate D/C tomorrow, patient requested to stay another day (Marisol Brush MD R1) Attending Attestation I discussed pt with residents on morning rounds. Agree with plan of care. (Adolfo Jackson MD) Marisol Brush MD R1 Jan 10, 2017 07:06 Adolfo Jackson MD Jan 10, 2017 09:46
[2017-01-10 08:15] VITALS: BP 115/74; PULSE 86; RESP 14; TEMP 97.7
[2017-01-10 09:00] VITALS: O2SAT 98
[2017-01-10] MEDS: SODIUM CHLORIDE 0.9% FLUSH 10 ML FLUSH IV FLUSH SCH (09:00)
[2017-01-10] MEDS: DOCUSATE SODIUM 50 MG/SENNA 8.6 MG TAB PO SCH ×2 (09:00→22:39)
[2017-01-10 20:00] VITALS: BP 136/85; PULSE 90
[2017-01-11] MEDS: IBUPROFEN 600 MG TAB PO PRN ×2 (03:40→09:59)
[2017-01-11] MEDS: oxyCODONE/ACETAMINOPHEN 5 MG/325 MG TAB PO PRN ×3 (03:40→14:42)
--- NOTE | 2017-01-11 07:09 | HHI.OB ---
Subjective Remarks 21 year old female s/p C/S at 40 wks gestation, POD 3. AFVSS. Patient reports she is feeling well. Bleeding is decreasing. She reports pain is well- controlled with Percocet. She is breast feeding and bonding well with baby. Ambulating without difficulties. She is tolerating a diet without nausea or vomiting. She has not had a bowel movement. She has passed gas. Denies chest pain, dysuria, shortness of breath, or calf pain. Objective Vitals/I&O Vital Signs Date Time Temp Pulse Resp B/P (MAP) Pulse Ox O2 Delivery O2 Flow Rate FiO2 01/10/17 20:00 90 136/85 (102) 01/10/17 09:00 98 01/10/17 08:15 97.7 86 14 115/74 (88) Result Diagram: 01/09/17 0518 Objective Remarks GENERAL: Well-nourished, well-developed patient. CARDIOVASCULAR: Regular rate and rhythm without murmurs, gallops, or rubs. RESPIRATORY: Breath sounds equal bilaterally. No accessory muscle use. ABDOMEN/GI: Abdomen soft, non-tender, bowel sounds present. Incision: no active bleeding. clean and dry, covered in steri strips Fundus: Firm, non-tender at umbilicus. GENITOURINARY: Light to moderate bleeding. EXTREMITIES: No cyanosis or edema, non-tender, without signs of DVT. Medications and IVs Current Medications Medications (Trade) Dose Ordered Sig/Nat Route Start Time Stop Time Status Last Admin (Zofran Inj) 4 mg Q6H PRN IV PUSH 01/06/17 21:30 (NS Flush) 2 ml BID IV FLUSH 01/09/17 09:00 (NS Flush) 2 ml UNSCH PRN IV FLUSH 01/08/17 23:45 (Mylicon Chew) 80 mg QID PRN PO 01/08/17 23:45 01/10/17 01:10 (Tylenol) 650 mg Q6H PRN PO 01/08/17 23:45 (Motrin) 600 mg Q6H PRN PO 01/08/17 23:45 01/11/17 03:40 (Percocet 5-325 Mg) 1 tab Q4H PRN PO 01/08/17 23:45 01/10/17 14:16 (Percocet 5-325 Mg) 2 tab Q4H PRN PO 01/08/17 23:45 01/11/17 03:40 (Yuni-Colace) 2 tab Q12HR PO 01/08/17 23:45 01/10/17 22:39 (Ambien) 5 mg HS PRN PO 01/08/17 23:45 (Zofran Inj) 4 mg Q6H PRN IV PUSH 01/08/17 23:45 Assessment/Plan Assessment and Plan 21 yo female s/p C/S, POD 3 - AFVSS - Continue routine care - Motrin and Percocet PRN pain - Encourage OOB - Pelvic rest x 6 wks. Will need 1 week incision check. - Contraception: OCPs; Progestin-only pill due to - Anticipate D/C today Marisol Brush MD R1 Jan 11, 2017 07:09
[2017-01-11] MEDS ORDERED: ORTH0.35 PO (07:14)
[2017-01-11] MEDS ORDERED: IBUP-232 PO (07:14)
[2017-01-11] MEDS ORDERED: OXYC1TAB63 PO (07:14)
--- NOTE | 2017-01-11 07:15 | HHI.DCPOC ---
Discharge Care Plan Diagnosis: (1) delivery delivered Report Symptoms to Your Doctor -Temperature above 100.5 degrees -Redness, of incision or excessive or foul smelling drainage -Unusual pain or calf pain -Increased vaginal bleeding -Painful or difficulty urinating -Feelings of extreme sadness or anxiety after 2 weeks Goals to Promote Your Health * To prevent worsening of your condition and complications * To maintain your health at the optimal level Directions to Meet Your Goals Take your medications as prescribed Follow your dietary instruction Follow activity as directed Ensure plenty of rest for recovery Drink fluids for hydration Keep your appointments as scheduled Take your immunizations and boosters as scheduled If your symptoms worsen call your PCP, if no PCP go to Urgent Care Center or Emergency Room Smoking is Dangerous to Your Health. Avoid second hand smoke Call the 24-hour crisis hotline for domestic abuse at Jovani Shields MD R2 Jan 11, 2017 07:15
[2017-01-11] MEDS: SODIUM CHLORIDE 0.9% FLUSH 10 ML FLUSH IV FLUSH SCH (09:00)
[2017-01-11 09:28] VITALS: BP 119/85; PULSE 76; RESP 16; TEMP 97.5
[2017-01-11] MEDS: DOCUSATE SODIUM 50 MG/SENNA 8.6 MG TAB PO SCH (09:59)
== END 2017-01-11 14:54 | disposition home or self-care (01) | DRG 765 ==
LOC: H2EB 19:42 → H2EA 20:03 → H1EA 01-08 19:55 → H2EA 01-08 20:05 → H1EA 01-09 01:01
PROVIDERS: ADMIT Obstetrics & Gynecology; ATTEND Obstetrics & Gynecology
PROC: 3E0P7VZ Introduction of Hormone into Female Reproductive, Via Natural or Artificial Opening (ICD-10-PCS; 2017-01-06)
PROC: 0T9B70Z Drainage of Bladder with Drainage Device, Via Natural or Artificial Opening (ICD-10-PCS; 2017-01-06)
PROC: 10D00Z1 Extraction of Products of Conception, Low, Open Approach (ICD-10-PCS; principal; 2017-01-08)
DX: O99.62 Diseases of the digestive system complicating childbirth (principal); O41.1230 Chorioamnionitis, third trimester, not applicable or unspecified; O48.0 Post-term pregnancy; Z37.0 Single live birth; O62.2 Other uterine inertia; Z3A.41 41 weeks gestation of pregnancy; K21.9 Gastro-esophageal reflux disease without esophagitis; O61.9 Failed induction of labor, unspecified
CPT/HCPCS: 59025; 81001; 82805; 85025; 86900; 86901; 87070; 88307; J0131; J0290; J1580; J1885; J2274; J2405; J2590; J3010; J7120; Q0163